=== PATIENT | female | born 1945 | race Caucasian/White ===

== ENCOUNTER 2019-03-02 23:17 | Emergency (ER) | payer OTHER ==
[~2019-03-02] VITALS: Ht 177.8 cm; Wt 83.0 kg
[2019-03-02] MEDS ORDERED: HYDROCODONE/APAP 5/325MG 1 EACH TABLET ONE (23:38)
[2019-03-02] MEDS ORDERED: CYCLOBENZAPRINE 10 MG TABLET ONE (23:38)
[2019-03-03] MEDS ORDERED: HYDROCODONE/APAP 5/325MG 1 EACH TABLET PO ONE
[2019-03-03] MEDS ORDERED: CYCLOBENZAPRINE 10 MG TABLET PO ONE
--- NOTE | 2019-03-03 01:59 | NUR ---
REPORT GIVEN TO CASSANDRA MARRUFO FOR RYAN
[2019-03-03 02:09] VITALS: BP 129/79
== END 2019-03-03 02:38 | disposition home or self-care (01) ==
LOC: ER 23:23
DX: M62.838 Other muscle spasm (principal); F31.9 Bipolar disorder, unspecified

== ENCOUNTER 2020-02-06 15:24 | Emergency (ER) | payer OTHER ==
[~2020-02-06] VITALS: Ht 175.3 cm; Wt 82.6 kg
--- NOTE | 2020-02-06 15:44 | NUR ---
PT NORIS CABALLERO TO ED BD 09. PER REPORT PT WAS "AGRESSIVE" W/ FELLOW RESIDENTS AND FACILITY STAFF. UPON ARRIVAL PT WAS COOPERATIVE AND NOT SHOWING ANY SIGN OF AGRESSION. STABLE VITALS NOTED. AFEBRILE ESTIMATOR AND DRAFTER. AWAITING MD SOSA.
--- NOTE | 2020-02-06 15:45 | NUR ---
DR ISBELL AT BEDSIDE FOR EVAL.
[2020-02-06] MEDS ORDERED: QUET300T2 PO (16:10)
[2020-02-06] MEDS ORDERED: DOCU-141 PO (16:10)
[2020-02-06] MEDS ORDERED: CARB200T39 PO (16:10)
[2020-02-06] MEDS ORDERED: SIMV-46 PO (16:10)
[2020-02-06] MEDS ORDERED: OLAN10TA3 PO (16:10)
[2020-02-06] MEDS ORDERED: SERT25TA PO (16:10)
[2020-02-06] MEDS ORDERED: TRAZ-257 PO (16:10)
--- NOTE | 2020-02-06 16:11 | NUR ---
PNEUMATIC DRUM SANDER AT BEDSIDE FOR BLOOD DRAW.
[2020-02-06 16:33] LABS: BASOPHILS % (AUTO) 0.4 % (0.0-2.0); EOSINOPHILS % (AUTO) 1.3 % (0.0-6.0); HEMATOCRIT 35 % (33-45); HEMOGLOBIN 11.4 g/dL (11.5-14.8); LYMPHOCYTES # (AUTO) 1.4 /CMM (0.8-4.8); LYMPHOCYTES % (AUTO) 14.6 % (20.0-44.0); MEAN CORPUSCULAR HGB CONC 33 g/dl (31.0-36.0); MEAN CORPUSCULAR VOLUME 98 fL (82-100); MONOCYTES # (AUTO) 0.5 /CMM (0.1-1.30); MONOCYTES % (AUTO) 4.8 % (2.0-12.0); NEUTROPHILS # (AUTO) 7.7 /CMM (1.8-8.9); NEUTROPHILS % (AUTO) 78.9 % (43.0-81.0); PLATELET COUNT (AUTO) 389 /CMM (150-450); RED BLOOD CELL COUNT(AUTO) 3.58 MIL/uL (4.0-5.2); WHITE BLOOD COUNT (AUTO) 9.8 K/uL (4.3-11.0)
--- NOTE | 2020-02-06 16:35 | NUR ---
PT RESTING IN BED. NO DISTRESS NOTED. STABLE VITALS. WILL CONTINUE TO MONITOR.
[2020-02-06 16:42] LABS: CALCIUM, SERUM 9.7 mg/dL (8.5-10.1); CARBON DIOXIDE 23 mmol/L (21-32); CHLORIDE 102 mmol/L (98-107); GLUCOSE 160 mg/dL (74-106); POTASSIUM 3.9 mmol/L (3.5-5.1); SODIUM SERUM 136 mmol/L (136-145); UREA NITROGEN, BLOOD 18 mg/dL (7-18)
[2020-02-06 16:49] LABS: ALANINE AMINOTRANSFERASE 71 U/L (12-78); ALBUMIN 3.2 g/dL (3.4-5.0); ALKALINE PHOSPHATASE 118 U/L (46-116); ASPARTATE AMINOTRANSFERASE 36 U/L (15-37); BILIRUBIN,TOTAL 0.2 mg/dL (0.2-1.0); TOTAL PROTEIN, SERUM 8.9 g/dL (6.4-8.2)
--- NOTE | 2020-02-06 16:50 | NUR ---
PT STILL UNABLE TO PROVIDE URINE SAMPLE.
[2020-02-06 16:58] LABS: ACETAMINOPHEN 0 ug/ml (10-30); ALCOHOL, BLOOD < 3 mg/dL (0-0); SALICYLATE 2.5 mg/dL (2.8-20.0)
[2020-02-06 17:18] LABS: APPEARANCE,URINE Clear (CLEAR); BILIRUBIN,URINE Negative (NEGATIVE); BLOOD, URINE Negative Ery/uL (NEGATIVE); COLOR,URINE Yellow (YELLOW); KETONES,URINE Negative (NEGATIVE); LEUKOCYTE ESTERASE ,URINE Negative (NEGATIVE); NITRITE, URINE Negative (NEGATIVE); PH,URINE 6.5 (5.0-8.0); PROTEIN,URINE Trace mg/dl (NEGATIVE); UGLUCOSE Negative (NEGATIVE)
[2020-02-06 17:49] LABS: BACTERIA,URINE Rare /HPF (None Seen); MUCUS,URINE Few /LPF (None Seen); RBC,URINE 0-2 /HPF (0-2); SQUAMOUS EPITHELIAL CELL,UR Few /HPF (None Seen); URINE AMORPHOUS URATE Rare /HPF (None Seen)
--- NOTE | 2020-02-06 18:22 | NUR ---
CALLED [facility] FOR PEER TO PEER.
--- NOTE | 2020-02-06 18:38 | NUR ---
CALLED [facility] FOR EVAL. WILL COME IN.
--- NOTE | 2020-02-06 19:01 | NUR ---
PT PROVIDED MEAL TRAY.
--- NOTE | 2020-02-06 19:12 | NUR ---
REPORT GIVEN TO TANIKA TRUJILLO FOR RYAN.
--- NOTE | 2020-02-06 20:23 | NUR ---
LONDON COLMENARES RN LOGISTIC MANAGER AT BEDSIDE TO SHEILA PT.
--- NOTE | 2020-02-06 20:41 | NUR ---
PATIENT IS PLACED ON 5150 HOLD FOR GRAVELY DISABLED .
--- NOTE | 2020-02-06 21:10 | NUR ---
SPOKE WITH [facility], PATIENT'S CLINICAL IS FAXED BY [facility], WILL CALLBACK REGARDING UPDATES.
[2020-02-06 22:27] VITALS: BP 129/68
--- NOTE | 2020-02-06 22:28 | NUR ---
SPOKE TO [facility] PT ACCEPTED AT [facility] ACCEPTING MD CARTER PHONE # FOR REPORT BLS TRANSPORT ETA [phone]
--- NOTE | 2020-02-06 23:37 | NUR ---
TRIED CALLING [facility] ER FOR REPORT, PLACED ON HOLD.
--- NOTE | 2020-02-06 23:46 | NUR ---
TRIED CALLING [facility] ER FOR REPORT, PLACED ON HOLD.
--- NOTE | 2020-02-06 23:48 | NUR ---
REPORT GIVEN TRANSPORT TEAM FOR RYAN. AND TRANSFERRING RESPONSIBILITIES.
--- NOTE | 2020-02-07 00:09 | NUR ---
REPORT GIVEN TO SEBASTIAN TRUJILLO AT [facility] FOR [facility]AN.
== END 2020-02-07 00:12 | disposition short-term general hospital (02) ==
LOC: ER 15:26
DX: R45.6 Violent behavior (principal); F31.9 Bipolar disorder, unspecified; F41.9 Anxiety disorder, unspecified; E78.00 Pure hypercholesterolemia, unspecified; Z88.6 Allergy status to analgesic agent; Z88.8 Allergy status to other drugs, medicaments and biological substances; Z88.5 Allergy status to narcotic agent; Z79.899 Other long term (current) drug therapy
CPT/HCPCS: 36415; 80048; 80076; 80305; 80307; 80329; 81001; 85025; 99285; G0480; 81000-TC